=== PATIENT | female | born 1985 | race Caucasian/White ===

== ENCOUNTER → 2019-06-17 08:15 | Outpatient (BNVA) | payer BC, SELFPAY | PROVIDERS: Family Provider Family Medicine; Visit Provider Registered Nurse | DX: R68.89 Other general symptoms and signs (principal); H65.01 Acute serous otitis media, right ear; J06.9 Acute upper respiratory infection, unspecified | CPT/HCPCS: 87804 ==

== ENCOUNTER → 2022-12-20 12:51 | Outpatient (BNVA) | payer BC, SELFPAY | PROVIDERS: Family Provider Family Medicine; PCP Registered Nurse; Visit Provider Registered Nurse | DX: R39.9 Unspecified symptoms and signs involving the genitourinary system (principal) | CPT/HCPCS: 81000 ==

== ENCOUNTER → 2023-01-08 10:41 | Outpatient (BNVA) | payer BC, SELFPAY | PROVIDERS: Family Provider Family Medicine; PCP Registered Nurse; Visit Provider Registered Nurse | DX: R39.9 Unspecified symptoms and signs involving the genitourinary system (principal) | CPT/HCPCS: 81000 ==

== ENCOUNTER → 2023-04-25 08:09 | Outpatient (BNVA) | payer BC, SELFPAY | PROVIDERS: Family Provider Family Medicine; PCP Registered Nurse; Visit Provider Registered Nurse | DX: B37.9 Candidiasis, unspecified (principal); R39.9 Unspecified symptoms and signs involving the genitourinary system; N76.0 Acute vaginitis; B96.89 Other specified bacterial agents as the cause of diseases classified elsewhere | CPT/HCPCS: 81000; 87070; 87106; 87205 ==

== ENCOUNTER → 2023-08-27 08:37 | Outpatient (BNVA) | payer BC, SELFPAY | PROVIDERS: Family Provider Family Medicine; PCP Registered Nurse; Visit Provider Registered Nurse | DX: R50.9 Fever, unspecified (principal); B34.9 Viral infection, unspecified | CPT/HCPCS: 87400 ==

== ENCOUNTER → 2024-05-22 07:14 | Outpatient (BNVA) | payer BC, SELFPAY | PROVIDERS: Family Provider Family Medicine; PCP Registered Nurse; Visit Provider Registered Nurse | DX: R35.0 Frequency of micturition (principal); R32 Unspecified urinary incontinence; R39.9 Unspecified symptoms and signs involving the genitourinary system | CPT/HCPCS: 80048; 81000; 82962; 83036; 85025; 87086 ==